=== PATIENT | female | born 1980 | race Caucasian/White ===

== ENCOUNTER 2019-01-17 09:34 | Inpatient (IN) | payer SELFPAY ==
[2019-01-17 09:35] VITALS: BP 191/100; PULSE 121; RESP 22; TEMP 36.4; O2SAT 100
--- NOTE | 2019-01-17 10:19 | CT_ITS ---
STUDY: CT ABDOMEN AND PELVIS WITHOUT CONTRAST REASON FOR EXAM: Female, 38 years old. Right flank pain. RADIATION DOSAGE (If Supplied By Facility): CTDIvol = ( 6.04 ) mGy, DLP = ( 292.95 ) mGycm TECHNIQUE: Transaxial images were obtained from the dome of the diaphragm to the symphysis pubis without oral contrast, and without intravenous contrast. Sagittal and coronal images were reconstructed. Individualized dose optimization techniques were used for this CT. COMPARISON: Minimal degree of increased markings at the left lung base suggestive of left basilar atelectasis. FINDINGS: The visualized lung bases are unremarkable. The visualized portions of the heart are within normal limits. Normal liver. Normal gallbladder and extrahepatic biliary system. Normal spleen. Normal pancreas. Normal bilateral adrenal glands. Right perinephric stranding. Congestion of the right kidney. Mild degree of right hydronephrosis. No ureteral calculus is seen at this time. Right-sided pyelonephritis should be ruled out. Punctate calcification in the upper pole of the left kidney. Normal visualized stomach. Normal small intestine. Normal colon. Inflammatory changes are seen in the right perinephric region and extending caudally. Retrocecal appendicitis should be ruled out. Normal abdominal aorta. Normal inferior vena cava. Normal retroperitoneum. Normal urinary bladder. Focal calcification is seen in the right side of the uterus suggestive of a fibroid change. Normal abdominal wall. Normal osseous structures. CT/Abdomen/Pelvis without Cont IMPRESSION: Findings suggestive of acute right-sided pyelonephritis with right perinephric stranding. Mild degree of right hydronephrosis and engorgement of the right kidney. Retrocecal appendicitis is another diagnostic consideration. Electronically Signed: Tristian Martin, at 12:38 EDT , Service support ,
--- NOTE | 2019-01-17 10:21 | ED.VISSUMM ---
- ER Visit Summary Date of Service: 01/17/19 Chief Complaint: Right flank pain History of Present Illness: The patient is a 38 F prior kidney stone. States the last several days she has had right flank pain briskly getting worse. Associated nausea. No vomiting or diarrhea. No fever. No dysuria or hematuria. No trauma. States her last menstrual period was 2 weeks ago. Says she just started bleeding again vaginally this morning. Physical Examination: Middle-aged female no acute distress vital signs are stable. Afebrile. Pulse ox on percent on room air no signs of hypoxia. She is tearful complaining of right flank pain. HEENT exam unremarkable. Moist week's membranes. Neck nontender. Lungs clear to auscultation. Heart regular rhythm no murmur. Abdomen is soft and nontender. Normal bowel sounds no peritoneal signs. She describes right flank pain but there is no reproducible tenderness. No guarding rebound or rigidity. Right upper right lower quadrants are unremarkable nontender. No hernias or masses. No obstruction. Patient is moving all 4 extremities. Neurovascularly intact. Test Results: White count 20,400 hemoglobin 13 hematocrit 42. No bands. Electrolytes potassium 3.3 normal gap and creatinine. UA positive for infection with positive nitrites greater than 100 red-white cells and 2+ bacteria sent for culture. Serum test negative. CT flank study without contrast is consistent with right pyelonephritis. The radiologist also read as a cannot rule out a retrocecal appendicitis but clinically the exam is consistent with pyelonephritis as on the labs. Emergency Department Course and Treatment: Treated with IV morphine and Zofran. IV fluids. CT flank study and labs are being obtained. Treatment Plan: Vision treated with 3 different doses of morphine will also be added with Toradol and she is had Zofran. She will be started on IV Rocephin for pyelonephritis. Disposition: Given her pain, white count and just overall presentation I will admit her. The hospitalist is on page. Hospitalist wanted a lactic acid performed prior to the patient being admitted. Impression: Acute right flank pain secondary to pyelonephritis Leukocytosis This note was generated with [employer] dictation software. It may contain incorrect words, spelling, and punctuation that were not noted in review of the chart prior to signing ED Disposition - Plan for ED Patient:
[2019-01-17] MEDS: Morphine 4 MG/ML Syringe 6 MG IV ×2 (10:41→14:39)
[2019-01-17] MEDS: Ondansetron 4 MG/2 ML Vial IV ×2 (10:41→18:42)
[2019-01-17] MEDS: 0.9% Normal Saline 1,000 ML 1000 ML IV (10:42)
[2019-01-17 10:58] LABS: Absolute Lymphocyte Count 1.38 X10^3/uL (0.83-4.51); Absolute Neutrophil Count 17.2 X10^3/uL (2.0-7.7); Basophil# 0.04 X10^3/uL; Basophil% 0.2 % (0-1); Eosinophil# 0.03 X10^3/uL; Eosinophils% 0.1 % (0-5); Hematocrit 42.1 % (37-47); Hemoglobin 13.7 g/dL (12.0-15.0); Lymphocyte # 1.38 X10^3/ul (4.0); Lymphocyte % 6.8 % (19-41); Mean Corp Hgb Conc 32.5 g/dL (32-36); Mean Corpuscular Volume 95.2 fL (81-99); Mean Platelet Vol. 8.2 fl (6.2-12.0); Monocyte# 1.38 X10^3/uL; Monocyte% 6.8 % (0-10); NRBC Flagged by Analyzer 0 % (0-5); Neutrophil % 84.5 % (47-70); Platelet Count 265 K/mm3 (150-450); RBC Distribution Width CV 11.9 % (11.6-14.6); RBC Distribution Width SD 41.6 fl (35.1-43.9); Red Blood Count 4.42 M/mm3 (4.2-5.4); White Blood Count 20.4 K/mm3 (4.4-11.0)
[2019-01-17 11:08] LABS: Internal QC Validated? YES +Cl - CLEAR BKGD; Pregnancy, Serum, hCG Quali. NEGATIVE Negative
[2019-01-17 11:18] LABS: AST(SGOT) 15 U/L (15-37); Alanine Aminotransfer ALT/SGPT 22 U/L (13-56); Albumin, Serum 3.2 g/dL (3.2-5.0); Alkaline Phosphatase 127 U/L (45-117); Anion Gap 5 (5-15); BUN 7 mg/dL (7-18); BUN/Creat Ratio 7.2 RATIO (10-20); Bilirubin, Direct 0.24 mg/dL (0.00-0.30); Calcium,Total 8.6 mg/dL (8.5-10.1); Chloride 100 mmol/L (98-107); Creatinine, Serum 0.97 mg/dL (0.55-1.02); EST Glomerular Filtration Rate 69 mL/min (>60); Est Glom Filt Rate - Afr Amer 83 mL/min (>60); Estimated Creatinine Clearance 64.43 ml/min; Globulin 4.3 g/dL (2.2-4.2); Glucose 180 mg/dL (74-106); Potassium 3.3 mmol/L (3.5-5.1); Protein, Total 7.5 g/dL (6.4-8.2); Sodium Level 132 mmol/L (136-145)
[2019-01-17 12:07] LABS: Mucous, Urine 0 SEEN /hpf (<or=2+)
[2019-01-17 12:10] LABS: Color, Urine Yellow (Yellow); Glucose, Dipstick Normal (Normal); Ketone-Dipstick 50 mg/dl (Negative); Leukocyte Esterase-Dipstick 500 /ul (Negative); Nitrite-Dipstick Positive (Negative); Occult Blood-Urine 150 /ul (Negative); Protein-Dipstick 100 mg/dl (Negative); Specific Gravity, Urine 1.015 (1.002-1.030); Urine Bilirubin Dipstick Negative (Negative); Urine Clarity Cloudy (Clear); Urine Urobilinogen Normal (Normal)
[2019-01-17 12:21] LABS: White Blood Cells >100 SEEN /hpf (0-5)
[2019-01-17 12:23] VITALS: RESP 16
[2019-01-17 12:23] LABS: Bacteria 2+ /hpf (None Seen); Red Blood Cells-Urine 5-10 SEEN /hpf (0-5); Squamous Epithelial Cells - UA 5-10 SEEN /hpf (5-10)
[2019-01-17 14:40] VITALS: RESP 18
[2019-01-17] MEDS: morphine 8 MG/ML Syringe 6 MG IV (15:28)
[2019-01-17] MEDS: Ketorolac 30 MG/ML Syringe IV (15:28)
[2019-01-17 15:29] VITALS: BMI 20.1
--- NOTE | 2019-01-17 15:48 | PCM.HP.STD ---
Problem List (1) Pyelonephritis Status: Acute (2) Acute sepsis Status: Acute (3) Alcoholism Status: Chronic (4) Nicotine abuse Status: Chronic History of Present Illness Date of Admission: 01/17/19 Chief Complaint: Right flank pain The patient is a 38 year old F of alcoholism, nicotine abuse, who presented to the emergency room with complaints of right-sided flank pain. She has had severe aching pain in the right flank for at least the past week. Yesterday she started also having fevers and chills at home. She denies dysuria. No hematuria. She does have increased frequency especially at night. She came to the emergency room and was found to have urinary tract infection and CT of the abdomen demonstrated pyelonephritis, no stones. She was given Rocephin and morphine however she continues to have severe uncontrolled pain. No nausea, vomiting, or diarrhea - she states she is constipated and has been taking laxatives for 3 days. She does not take medication. She smokes a pack per day. She states that she is an alcoholic however she does not currently drink everyday, and that she will not go through withdrawal while shes here. 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 Denies: Weakness, Weight Change, Fatigue HEENT: Denies: Head Aches, Sinus Congestion, Sinus Drainage Cardiovascular: Denies: Chest Pain, Edema, Palpitations Respiratory: Denies: Cough, Shortness of Breath, Shortness of breath at rest, Sputum production, Wheezing Gastrointestinal: Reports: Abdominal Pain, Constipation, - - flank pain. Denies: Nausea, Vomiting Genitourinary: Reports: Frequency. Denies: Dysuria, Hematuria, Incontinence, Urgency Musculoskeletal: Denies: Joint Pain, Joint Tenderness Skin: Denies: Rash, Wounds Neurological: Denies: Numbness, Tingling, Focal weakness Psychiatric: Denies: Anxiety, Depression, Homicidal Ideations, Suicidal Ideations Hematologic/ Lymphatic: Denies: Easy Bruising, Easy Bleeding VTE Information - Inpt Only VTE Present on Admission: No VTE Mechan Device Prophylaxis: None VTE Pharm Prophylaxis ordered?: No Reason prophylaxis not ordered:: Procedure Not Indicated Patient Problems: Active and Suspected Problems Pyelonephritis (Acute) Acute sepsis (Acute) - Physical Exam General: Alert, Oriented x3, Cooperative, - - restlessin bed obvious discomfort HEENT: Atraumatic, PERRLA, EOMI, Normocephalic Neck: Supple, No JVD, Negative Carotid Bruits Lungs: Clear to auscultation, Normal air movement Cardiovascular: Regular rate, No murmurs Abdomen: Bowel Sounds Present, Soft, Non Tender, Tender - right abdominal tenderness, cva tenderness. Extremities: No edema, Capillary Refill Less than 3 Seconds Skin: No rashes, No breakdown Musculoskeletal: No Tenderness to Palpation of Joints or Extremities Neurological: Cranial nerves II-XII grossly intact Psych/Mental Status: Normal Affect, Appropriate, Alert and oriented to time, place, person, mood and affect Vital Signs Temp Pulse Resp BP Pulse Ox 97.5 F L 121 H 18 191/100 H 100 01/17/19 09:35 01/17/19 09:35 01/17/19 14:40 01/17/19 09:35 01/17/19 09:35 Oxygen Delivery Method Room Air Weight: 113 lb 5.082 oz Body Mass Index (BMI) 20.0 Intake and Output for Last 24 Hours 01/15/19 01/16/19 01/17/19 23:59 23:59 23:59 Intake Total 1000 / 1000 Balance 1000 / 1000 Laboratory Tests Past 24 Hrs 01/17/19 01/17/19 01/17/19 09:54 09:54 10:45 WBC 20.4 H RBC 4.42 Hgb 13.7 Hct 42.1 MCV 95.2 MCH 31.0 MCHC 32.5 RDW Std Deviation 41.6 RDW Coeff of Minesh 11.9 Plt Count 265 MPV 8.2 Immature Gran % (Auto) 1.600 H Neut % (Auto) 84.5 H Lymph % (Auto) 6.8 L [place] % (Auto) 6.8 Eos % (Auto) 0.1 Baso % (Auto) 0.2 Absolute Neuts (auto) 17.2 H Absolute Lymphs (auto) 1.38 Nucleated RBC % 0 Sodium Cancelled Potassium Cancelled Chloride Cancelled Carbon Dioxide Cancelled Anion Gap Cancelled BUN Cancelled Creatinine Cancelled Estim Creat Clear Calc Cancelled Est GFR (MDRD) Af Amer Cancelled Est GFR (MDRD) Non-Af Cancelled BUN/Creatinine Ratio Cancelled Glucose Cancelled Calcium Cancelled Total Bilirubin Cancelled Direct Bilirubin Cancelled AST Cancelled ALT Cancelled Alkaline Phosphatase Cancelled Total Protein Cancelled Albumin Cancelled Globulin Cancelled Serum , Qual Cancelled Urine Color Urine Clarity Urine pH Ur Specific [place] Urine Protein Urine Glucose (UA) Urine Ketones Urine Occult Blood Urine Nitrite Urine Bilirubin Urine Urobilinogen Ur Leukocyte Esterase Urine RBC Urine WBC Ur Squamous Epith Cells Urine Bacteria Urine Mucus 01/17/19 01/17/19 01/17/19 10:45 10:45 11:56 WBC RBC Hgb Hct MCV MCH MCHC RDW Std Deviation RDW Coeff of Minesh Plt Count MPV Immature Gran % (Auto) Neut % (Auto) Lymph % (Auto) [place] % (Auto) Eos % (Auto) Baso % (Auto) Absolute Neuts (auto) Absolute Lymphs (auto) Nucleated RBC % Sodium 132 L Potassium 3.3 L Chloride 100 Carbon Dioxide 27.0 Anion Gap 5 BUN 7 Creatinine 0.97 Estim Creat Clear Calc 64.43 Est GFR (MDRD) Af Amer 83 Est GFR (MDRD) Non-Af 69 BUN/Creatinine Ratio 7.2 L Glucose 180 H Calcium 8.6 Total Bilirubin 0.80 Direct Bilirubin 0.24 AST 15 ALT 22 Alkaline Phosphatase 127 H Total Protein 7.5 Albumin 3.2 Globulin 4.3 H Serum , Qual NEGATIVE Urine Color Yellow Urine Clarity Cloudy Urine pH 6.0 Ur Specific [place] 1.015 Urine Protein 100 H Urine Glucose (UA) Normal Urine Ketones 50 H Urine Occult Blood 150 H Urine Nitrite Positive H Urine Bilirubin Negative Urine Urobilinogen Normal Ur Leukocyte Esterase 500 H Urine RBC 5-10 SEEN Urine WBC >100 SEEN Ur Squamous Epith Cells 5-10 SEEN Urine Bacteria 2+ Urine Mucus 0 SEEN Assessment/Plan All Active Problems Pyelonephritis (Acute) Acute sepsis (Acute) 1. Acute sepsis 2/2 acute right sided pyelonephritis - WBC 20k, tachycardic, tachypneic. + UA, CT c/w Pyelo right sided. LA pending. Blood/urine cx drawn. Continue rocephin 2g/24h. Uncontrolled right flank pain. Continue PRN oxycodone/morphine, zofran, aggressive IV fluids. No dysuria. Replace K. HCG neg. 2. Alcoholism - states she does not drink daily. Needs complete cessation. CIWA protocol PRN ativan. She doubts that she will have issues with withdrawal whil ehre. 3. Nicotine abuse - patch. smokes 1 ppd. DVT ppx: early ambulation This patient was seen by Ten Godoy PA-C under the supervision of Doctor Brunner
[2019-01-17] MEDS: Ceftriaxone 1 GM/50 ML BAG IV (15:50)
[2019-01-17 15:59] VITALS: BMI 20.2
[2019-01-17 16:00] VITALS: BP 96/58; PULSE 87; RESP 18; TEMP 37.2; O2SAT 98
[2019-01-17] MEDS: 0.9% Normal Saline 1,000 ML 150 ML IV ×2 (16:28→23:06)
[2019-01-17 16:41] LABS: Lactic Acid 0.7 mmol/L (0.4-2.0)
[2019-01-17] MEDS: Morphine 4 MG/ML Syringe IV (18:42)
[2019-01-17] MEDS: 0.9% NaCl Peripheral Flush Adult/Peds IV (18:42)
[2019-01-17 21:34] VITALS: BP 98/59; PULSE 101; RESP 16; TEMP 37.1; O2SAT 100
[2019-01-18] VITALS (7 sets, daily range): BP systolic 87–110; BP diastolic 54–73; PULSE 89–108; RESP 14–18; TEMP 36.7–37.8; O2SAT 95–100
[2019-01-18] MEDS: Acetaminophen 325 MG Tablet 650 MG PO (00:57)
[2019-01-18] MEDS: 0.9% NaCl Peripheral Flush Adult/Peds IV ×4 (00:58→12:19)
[2019-01-18] MEDS: Ondansetron 4 MG/2 ML Vial IV ×2 (00:58→06:53)
[2019-01-18] MEDS: oxyCODONE 5 MG Tablet 10 MG PO ×3 (00:58→18:24)
[2019-01-18] MEDS: Morphine 4 MG/ML Syringe IV (03:16)
[2019-01-18 05:55] LABS: Absolute Lymphocyte Count 1.52 X10^3/uL (0.83-4.51); Basophil# 0.03 X10^3/uL; Basophil% 0.2 % (0-1); Eosinophil# 0.05 X10^3/uL; Eosinophils% 0.3 % (0-5); Hematocrit 34.6 % (37-47); Hemoglobin 11.1 g/dL (12.0-15.0); Lymphocyte # 1.52 X10^3/ul (4.0); Lymphocyte % 10.1 % (19-41); Mean Corp Hgb Conc 32.1 g/dL (32-36); Mean Corpuscular Hgb 30.7 pg (27.0-32.0); Mean Corpuscular Volume 95.6 fL (81-99); Mean Platelet Vol. 8.5 fl (6.2-12.0); Monocyte# 1.25 X10^3/uL; Monocyte% 8.3 % (0-10); NRBC Flagged by Analyzer 0 % (0-5); Neutrophil # 12.02 X10^3/uL (2.7-7.7); POSITIVE MORPHOLOGY YES; Platelet Count 230 K/mm3 (150-450); RBC Distribution Width CV 11.9 % (11.6-14.6); RBC Distribution Width SD 41.5 fl (35.1-43.9); Red Blood Count 3.62 M/mm3 (4.2-5.4)
[2019-01-18 05:57] LABS: Differential Indicated SCAN CRITERIA MET
[2019-01-18 06:23] LABS: Anion Gap 8 (5-15); BUN 7 mg/dL (7-18); BUN/Creat Ratio 9.1 RATIO (10-20); Calcium,Total 7.5 mg/dL (8.5-10.1); Chloride 105 mmol/L (98-107); Creatinine, Serum 0.77 mg/dL (0.55-1.02); EST Glomerular Filtration Rate 89 mL/min (>60); Est Glom Filt Rate - Afr Amer 108 mL/min (>60); Estimated Creatinine Clearance 81.66 ml/min; Glucose 151 mg/dL (74-106); Potassium 2.9 mmol/L (3.5-5.1); Sodium Level 138 mmol/L (136-145)
[2019-01-18] MEDS: 0.9% Normal Saline 1,000 ML 150 ML IV ×3 (06:25→18:24)
[2019-01-18 06:29] LABS: Differential Comment SCANNED
[2019-01-18] MEDS: 0.9% Normal Saline 1,000 ML 999 ML IV (07:12)
--- NOTE | 2019-01-18 07:23 | PN_ITS ---
Patient Problems: Active and Suspected Problems Pyelonephritis (Acute) Acute sepsis (Acute) Vitals/I&O's: Vital Signs Temp Pulse Resp BP Pulse Ox 98.7 F 99 18 87/55 L 98 01/18/19 06:51 01/18/19 06:51 01/18/19 06:51 01/18/19 06:51 01/18/19 06:51 Oxygen Delivery Method Room Air Weight: 51.71 kg Body Mass Index (BMI) 20.2 Intake and Output for Last 24 Hours 01/16/19 01/17/19 01/18/19 23:59 23:59 23:59 Intake Total 2145 / 2591 1916 / 1916 Output Total 600 / 600 Balance 2145 / 2391 1316 / 1316 Laboratory Results 01/17/19 09:54: Sodium Cancelled, Potassium Cancelled, Chloride Cancelled, Carbon Dioxide Cancelled, Anion Gap Cancelled, BUN Cancelled, Creatinine Cancelled, Estim Creat Clear Calc Cancelled, Est GFR (MDRD) Af Amer Cancelled, Est GFR (MDRD) Non-Af Cancelled, BUN/Creatinine Ratio Cancelled, Glucose Cancelled, Calcium Cancelled, Total Bilirubin Cancelled, Direct Bilirubin Cancelled, AST Cancelled, ALT Cancelled, Alkaline Phosphatase Cancelled, Total Protein Cancelled, Albumin Cancelled, Globulin Cancelled 01/17/19 09:54: Serum , Qual Cancelled 01/17/19 10:45: WBC 20.4 H, RBC 4.42, Hgb 13.7, Hct 42.1, MCV 95.2, MCH 31.0, MCHC 32.5, RDW Std Deviation 41.6, RDW Coeff of Minesh 11.9, Plt Count 265, MPV 8.2, Immature Gran % (Auto) 1.600 H, Neut % (Auto) 84.5 H, Lymph % (Auto) 6.8 L, [place] % (Auto) 6.8, Eos % (Auto) 0.1, Baso % (Auto) 0.2, Absolute Neuts (auto) 17.2 H, Absolute Lymphs (auto) 1.38, Nucleated RBC % 0 01/17/19 10:45: Sodium 132 L, Potassium 3.3 L, Chloride 100, Carbon Dioxide 27.0, Anion Gap 5, BUN 7, Creatinine 0.97, Estim Creat Clear Calc 64.43, Est GFR (MDRD) Af Amer 83, Est GFR (MDRD) Non-Af 69, BUN/Creatinine Ratio 7.2 L, Glucose 180 H, Calcium 8.6, Total Bilirubin 0.80, Direct Bilirubin 0.24, AST 15, ALT 22, Alkaline Phosphatase 127 H, Total Protein 7.5, Albumin 3.2, Globulin 4.3 H 01/17/19 10:45: Serum , Qual NEGATIVE 01/17/19 11:56: Urine Color Yellow, Urine Clarity Cloudy, Urine pH 6.0, Ur S pecific [place] 1.015, Urine Protein 100 H, Urine Glucose (UA) Normal, Urine Ketones 50 H, Urine Occult Blood 150 H, Urine Nitrite Positive H, Urine Bilirubin Negative, Urine Urobilinogen Normal, Ur Leukocyte Esterase 500 H, Urine RBC 5-10 SEEN, Urine WBC >100 SEEN, Ur Squamous Epith Cells 5-10 SEEN, Urine Bacteria 2+, Urine Mucus 0 SEEN 01/17/19 16:08: Lactic Acid 0.7 01/18/19 05:30: WBC 15.0 H, RBC 3.62 L, Hgb 11.1 L, Hct 34.6 L, MCV 95.6, MCH 30.7, MCHC 32.1, RDW Std Deviation 41.5, RDW Coeff of Minesh 11.9, Plt Count 230, MPV 8.5, Immature Gran % (Auto) 1.100 H, Neut % (Auto) 80.0 H, Lymph % (Auto) 10.1 L, [place] % (Auto) 8.3, Eos % (Auto) 0.3, Baso % (Auto) 0.2, Absolute Neuts (auto) 12.0 H, Absolute Lymphs (auto) 1.52, Nucleated RBC % 0, Differential Comment SCANNED 01/18/19 05:30: Sodium 138, Potassium 2.9 L, Chloride 105, Carbon Dioxide 25.0, Anion Gap 8, BUN 7, Creatinine 0.77, Estim Creat Clear Calc 81.66, Est GFR (MDRD) Af Amer 108, Est GFR (MDRD) Non-Af 89, BUN/Creatinine Ratio 9.1 L, Glucose 151 H, Calcium 7.5 L Current Medications Acetaminophen (Tylenol) 650 mg PO Q6H PRN PRN PRN Reason: Mild Pain (1-3)/Temp > 100.7 F Last Admin: 01/18/19 00:57 Dose: 650 mg Documented by: Sodium Chloride () 1,000 mls @ 150 mls/hr IV .Q6H40M [facility] Last Admin: 01/18/19 06:25 Dose: 150 mls/hr Documented by: Ceftriaxone Sodium 2 gm/ (Sodium Chloride) 50 mls @ 100 mls/hr IV Q24@2200 PJ Last Infusion: 01/18/19 03:46 Dose: Infused Documented by: Sodium Chloride () 1,000 mls @ 999 mls/hr IV .Q1H1M ONE Stop: 01/18/19 08:02 Last Admin: 01/18/19 07:12 Dose: 999 mls/hr Documented by: Potassium Chloride () 10 meq in 100 mls @ 100 mls/hr IV BOLUS Q1H [facility] Stop: 01/18/19 11:29 Morphine Sulfate () 4 - 6 mg IV Q3H PRN PRN PRN Reason: Severe pain (7-10/10) Last Admin: 01/18/19 03:16 Dose: 4 mg Documented by: Ondansetron HCl (Zofran) 4 mg IV Q6H PRN PRN PRN Reason: NAUSEA/VOMITING Last Admin: 01/18/19 06:53 Dose: 4 mg Documented by: Oxycodone HCl (Oxyir) 10 mg PO Q4H PRN PRN PRN Reason: Moderate Pain (4-6/10) Last Admin: 01/18/19 00:58 Dose: 10 mg Documented by: Potassium Chloride (K-Dur) 40 meq PO BIDCM [facility] Sodium Chloride () 5 - 15 ml IV UD PRN PRN Reason: SALINE FLUSH Last Admin: 01/18/19 06:53 Dose: 10 ml Documented by: Medical Necessity - Tobacco Use Smoking Status: Current every day smoker Tobacco Use: Cigarettes Assessment/Plan All Active Problems Pyelonephritis (Acute) Acute sepsis (Acute)
[2019-01-18] MEDS: Potassium Chloride 10mEq/100mL 10 MEQ/100 ML IV.SOLN. 100 MEQ IV BOLUS ×4 (08:41→13:35)
[2019-01-18] MEDS: fentaNYL 100 MCG/2 ML Ampul 25 MCG IV (09:11)
--- NOTE | 2019-01-18 09:11 | NURSING ---
PT REQUESTED TO WAIT ON KDUR TIL NAUSEA IMPROVED.
--- NOTE | 2019-01-18 12:10 | CASEMGMT ---
Social Work Met with patient as she is self-pay. Patient stated she has no income and lives with her fiance that receives $1,000/mo through his late mother's trust. Discussed applying for Medicaid. Pt agreeable. Assist pt in completing Medicaid application. Faxed lisette to [facility]. Will await outcome. Inquired about alcohol and if she would like resources for alcohol detox or counseling - pt stated no, I've been good with my drinking. No other needs. Mag Winn, JUDI [facility]
[2019-01-18 12:13] LABS: Magnesium 1.8 mg/dL (1.6-2.6); Phosphorus 1.4 mg/dL (2.5-4.9)
[2019-01-18] MEDS: hydrOXYzine PAM 25 MG Capsule PO (12:18)
[2019-01-18] MEDS: Ketorolac 15 MG/ML Vial IV ×2 (12:18→21:14)
--- NOTE | 2019-01-18 12:18 | NURSING ---
pt able to tolerate lunch without N/V meds given.
--- NOTE | 2019-01-18 12:32 | CASEMGMT ---
Addendum entered by Cristy Alvarez 01/18/19 12:44: Pt provided with Prescription Drug Discount Card at this time. Original Note: RN CM Assessment Introduced role of RN CM to patient.? Patient is alert, oriented and able?to participate in RN CM Assessment. ?Care providers, pharmacy, and demographics verified. Presentation: Presented to ER d/t last several days with Rt Flank pain that is getting worse. Admit Dx: Pyelonephritis Re-Admit: No Barriers/Issues: Patient currently does not have insurance/pcp/medication coverage. Refused offered PCP list and states that she knows doctors to get established with and f/u. 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 PCP: None Specialists: None Preferred Pharmacy: [facility] Insurance: None Rx Benefit: None? ?LNOK: Mother Buhmi Walker LW/HPOA: None and declines offered information or services this admission. Aware can come as an Outpatient to complete. Living Arrangements:?Lives with her Fiance in a SS home, 5 steps to enter ADL?s: Independent with ambulation and ADLs Transportation: Friends and same upon DC, denies any transportation issues. DME: None HHC: None SNF: None Goal: Home denies any needs. Aware CM can work to assist if Dc'd with medications with medication coupon cards. Denies any issues/concerns/ or questions at this time. Aware CM remains available for any emerging needs. DC PLAN: Home with CM to follow for Coupon Card for medications. AV Felipe
--- NOTE | 2019-01-18 14:04 | PCM.PROGNOTE ---
<Ten Godoy - Last Filed: 01/18/19 14:04> Patient Problems: Active and Suspected Problems Pyelonephritis (Acute) Acute sepsis (Acute) Subjective: ongoing right sided flank pain, this is now more dull and less severe than last night. she continues to have nausea/vomiting. She continues to require a large amount of pain meds. No fever/chills. no LH/dizziness. No palp/cp. She feels very anxious and is requesting something for anxiety. - Physical Exam General: Alert, Oriented x3, Cooperative HEENT: Atraumatic, PERRLA, EOMI, Normocephalic Neck: Supple, No JVD, Negative Carotid Bruits Lungs: Clear to auscultation, Normal air movement Cardiovascular: Regular rate, No murmurs Abdomen: Bowel Sounds Present, Soft, - - CVA tenderness, RLQ tenderness. Extremities: No edema, Capillary Refill Less than 3 Seconds Skin: No rashes, No breakdown Musculoskeletal: No Tenderness to Palpation of Joints or Extremities Neurological: Cranial nerves II-XII grossly intact Psych/Mental Status: Appropriate, Anxious, Alert and oriented to time, place, person, mood and affect Vital Signs Temp Pulse Resp BP Pulse Ox 99.2 F H 99 18 99/65 100 01/18/19 12:18 01/18/19 12:18 01/18/19 12:18 01/18/19 12:18 01/18/19 12:18 Oxygen Delivery Method Room Air Weight: 114 lb 0.016 oz Body Mass Index (BMI) 20.2 Intake and Output for Last 24 Hours 01/16/19 01/17/19 01/18/19 23:59 23:59 23:59 Intake Total 2145 / 2591 4683.5 / 4683.5 Output Total 950 / 950 Balance 2145 / 2391 3733.5 / 3733.5 Microbiology Past 72 Hours 01/17/19 11:56 Urine Culture - Preliminary Urine, Clean Catch Gram negative joce Laboratory Tests Past 24 Hrs 01/17/19 01/18/19 01/18/19 16:08 05:30 05:30 WBC 15.0 H RBC 3.62 L Hgb 11.1 L Hct 34.6 L MCV 95.6 MCH 30.7 MCHC 32.1 RDW Std Deviation 41.5 RDW Coeff of Minesh 11.9 Plt Count 230 MPV 8.5 Immature Gran % (Auto) 1.100 H Neut % (Auto) 80.0 H Lymph % (Auto) 10.1 L Turner % (Auto) 8.3 Eos % (Auto) 0.3 Baso % (Auto) 0.2 Absolute Neuts (auto) 12.0 H Absolute Lymphs (auto) 1.52 Nucleated RBC % 0 Differential Comment SCANNED Sodium 138 Potassium 2.9 L Chloride 105 Carbon Dioxide 25.0 Anion Gap 8 BUN 7 Creatinine 0.77 Estim Creat Clear Calc 81.66 Est GFR (MDRD) Af Amer 108 Est GFR (MDRD) Non-Af 89 BUN/Creatinine Ratio 9.1 L Glucose 151 H Lactic Acid 0.7 Calcium 7.5 L Phosphorus Magnesium 01/18/19 05:30 WBC RBC Hgb Hct MCV MCH MCHC RDW Std Deviation RDW Coeff of Minesh Plt Count MPV Immature Gran % (Auto) Neut % (Auto) Lymph % (Auto) Turner % (Auto) Eos % (Auto) Baso % (Auto) Absolute Neuts (auto) Absolute Lymphs (auto) Nucleated RBC % Differential Comment Sodium Potassium Chloride Carbon Dioxide Anion Gap BUN Creatinine Estim Creat Clear Calc Est GFR (MDRD) Af Amer Est GFR (MDRD) Non-Af BUN/Creatinine Ratio Glucose Lactic Acid Calcium Phosphorus 1.4 L Magnesium 1.8 Medical Necessity - Tobacco Use Smoking Status: Current every day smoker Tobacco Use: Cigarettes Assessment/Plan All Active Problems Pyelonephritis (Acute) Acute sepsis (Acute) 1. Acute sepsis 2/2 acute right sided pyelonephritis - WBC improved, afebrile. Still significant pain and borderline BP. Continue rocephin, follow final cultures. Avoid excessive IV morphine. 2. Alcoholism - states she does not drink daily. Needs complete cessation. CIWA protocol PRN ativan. She doubts that she will have issues with withdrawal while here. 3. Nicotine abuse - patch. smokes 1 ppd. 4. Anxiety - prn vistaril. avoid ativan with hx of alcohol abuse and ongoing borderling low blood pressure. DVT ppx: early ambulation This patient was seen by Ten Godoy PA-C under the supervision of Doctor Nakia <Jennyfer Yee - Last Filed: 01/18/19 16:43> - Physical Exam Vital Signs Temp Pulse Resp BP Pulse Ox 99.2 F H 99 18 99/65 100 01/18/19 12:18 01/18/19 12:18 01/18/19 12:18 01/18/19 12:18 01/18/19 12:18 Oxygen Delivery Method Room Air Weight: 51.71 kg Body Mass Index (BMI) 20.2 Intake and Output for Last 24 Hours 01/16/19 01/17/19 01/18/19 23:59 23:59 23:59 Intake Total 2145 / 2591 4783.5 / 4783.5 Output Total 950 / 950 Balance 2145 / 2391 3833.5 / 3833.5 Microbiology Past 72 Hours 01/17/19 11:56 Urine Culture - Preliminary Urine, Clean Catch Gram negative joce Laboratory Tests Past 24 Hrs 01/17/19 01/18/19 01/18/19 16:08 05:30 05:30 WBC 15.0 H RBC 3.62 L Hgb 11.1 L Hct 34.6 L MCV 95.6 MCH 30.7 MCHC 32.1 RDW Std Deviation 41.5 RDW Coeff of Minesh 11.9 Plt Count 230 MPV 8.5 Immature Gran % (Auto) 1.100 H Neut % (Auto) 80.0 H Lymph % (Auto) 10.1 L Turner % (Auto) 8.3 Eos % (Auto) 0.3 Baso % (Auto) 0.2 Absolute Neuts (auto) 12.0 H Absolute Lymphs (auto) 1.52 Nucleated RBC % 0 Differential Comment SCANNED Sodium 138 Potassium 2.9 L Chloride 105 Carbon Dioxide 25.0 Anion Gap 8 BUN 7 Creatinine 0.77 Estim Creat Clear Calc 81.66 Est GFR (MDRD) Af Amer 108 Est GFR (MDRD) Non-Af 89 BUN/Creatinine Ratio 9.1 L Glucose 151 H Lactic Acid 0.7 Calcium 7.5 L Phosphorus Magnesium 01/18/19 05:30 WBC RBC Hgb Hct MCV MCH MCHC RDW Std Deviation RDW Coeff of Minesh Plt Count MPV Immature Gran % (Auto) Neut % (Auto) Lymph % (Auto) Turner % (Auto) Eos % (Auto) Baso % (Auto) Absolute Neuts (auto) Absolute Lymphs (auto) Nucleated RBC % Differential Comment Sodium Potassium Chloride Carbon Dioxide Anion Gap BUN Creatinine Estim Creat Clear Calc Est GFR (MDRD) Af Amer Est GFR (MDRD) Non-Af BUN/Creatinine Ratio Glucose Lactic Acid Calcium Phosphorus 1.4 L Magnesium 1.8 Assessment/Plan This patient was seen in conjunction with MARSHLAL Maher. I have independently interviewed and examined the patient and reviewed pertinent historical, laboratory, and other data. Please refer to MARSHALL Maher note for his patient's presentation, findings, and recommendations. I have reviewed and his note and concur with his documentation Patient was seen and examined. She had an episode of emesis and hypotension. She received fluid boluses. She complains of right flank pain. She denies any fever or dizziness or chest pain. Physical Exam: Gen: Looks in some discomfort, not pale, not jaundiced, mildly dehydrated CVS:HS I +II, regular, no murmurs RESP: CTA GI: BS present and normal, soft, tenderness in right flank region, no palpable organs EXT:No edema ASSESSMENT: 1. Sepsis secondary to acute pyelonephritis 2. Hypokalemia 3. Hypomagnesemia 4. Hypophosphatemia 5. Chronic alcoholism 6. Nicotine dependence 7. Anxiety disorder Plan: Replace electrolytes, continue IV ceftriaxone Follow-up with urine cultures Monitor CIWA scores Code Visit Inpatient E&M: 87734 Subs Hosp L2
--- NOTE | 2019-01-18 15:23 | CHAPLAIN ---
Type of Pastoral Visit _x__ Initial Visit ___ Follow-up Visit ___ On-call Visit ___ General Patient Visit ___ Spiritual Assessment ___ Family Conference ___ Bereavement ___ Rapid Response ___ Code Blue ___ Other (describe below) Pastoral Care Referral From _x__ Patient ___ Family ___ Nurse ___ Physician ___ Catcher Filter Tip ___ Logistics Solution Manager ___ Other (describe below) Sacrament/Intervention _x__ Active listening ___ Anointing ___ Jainism ___ Bereavement ___ Communion ___ Chante exploration ___ ___ Life review _x__ Prayer ___ Reconciliation ___ Sacrament of Sick _x__ Supportive presence ___ Wedding ___ Other (describe below) Pastoral Comments
[2019-01-18] MEDS: Magnesium Oxide 400 MG Tablet 800 MG PO (17:25)
[2019-01-18] MEDS: Na Biphos/Potassium Phosphate PACKET 1 PACKET PO ×2 (17:26→21:04)
[2019-01-19] MEDS: 0.9% Normal Saline 1,000 ML 150 ML IV ×2 (01:44→08:10)
[2019-01-19] MEDS: oxyCODONE 5 MG Tablet 10 MG PO (01:48)
[2019-01-19 03:29] VITALS: BP 102/64; PULSE 97; RESP 18; TEMP 37.9; O2SAT 96
[2019-01-19] MEDS: Acetaminophen 325 MG Tablet 650 MG PO (03:41)
[2019-01-19 06:44] LABS: Absolute Lymphocyte Count 1.22 X10^3/uL (0.83-4.51); Absolute Neutrophil Count 5.9 X10^3/uL (2.0-7.7); Basophil# 0.01 X10^3/uL; Basophil% 0.1 % (0-1); Eosinophil# 0.06 X10^3/uL; Eosinophils% 0.8 % (0-5); Hemoglobin 10.2 g/dL (12.0-15.0); Lymphocyte # 1.22 X10^3/ul (4.0); Lymphocyte % 15.5 % (19-41); Mean Corp Hgb Conc 31.9 g/dL (32-36); Mean Corpuscular Hgb 30.5 pg (27.0-32.0); Mean Corpuscular Volume 95.8 fL (81-99); Mean Platelet Vol. 8.6 fl (6.2-12.0); Monocyte# 0.65 X10^3/uL; Monocyte% 8.2 % (0-10); NRBC Flagged by Analyzer 0 % (0-5); Neutrophil # 5.87 X10^3/uL (2.7-7.7); Neutrophil % 74.5 % (47-70); Platelet Count 194 K/mm3 (150-450); RBC Distribution Width CV 12.2 % (11.6-14.6); RBC Distribution Width SD 42.9 fl (35.1-43.9); Red Blood Count 3.34 M/mm3 (4.2-5.4); White Blood Count 7.9 K/mm3 (4.4-11.0)
[2019-01-19] MEDS: Ketorolac 15 MG/ML Vial IV (06:50)
[2019-01-19 06:53] VITALS: TEMP 36.6
[2019-01-19 07:08] LABS: Anion Gap 2 (5-15); BUN 4 mg/dL (7-18); BUN/Creat Ratio 5.1 RATIO (10-20); Calcium,Total 7.6 mg/dL (8.5-10.1); Chloride 109 mmol/L (98-107); Creatinine, Serum 0.78 mg/dL (0.55-1.02); EST Glomerular Filtration Rate 89 mL/min (>60); Est Glom Filt Rate - Afr Amer 107 mL/min (>60); Estimated Creatinine Clearance 80.61 ml/min; Glucose 158 mg/dL (74-106); Potassium 3.6 mmol/L (3.5-5.1); Sodium Level 137 mmol/L (136-145)
[2019-01-19 08:12] VITALS: BP 98/68; PULSE 90; RESP 18; TEMP 36.7; O2SAT 100
[2019-01-19 08:18] LABS: Magnesium 1.9 mg/dL (1.6-2.6); Phosphorus 1.4 mg/dL (2.5-4.9)
[2019-01-19] MEDS: Magnesium Oxide 400 MG Tablet 800 MG PO (09:10)
--- NOTE | 2019-01-19 09:12 | PCM.DC ---
- Discharge Diagnoses Current Active Problems: Current Active and Chronic Problems Pyelonephritis (Acute) Acute sepsis (Acute) Alcoholism (Chronic) Nicotine abuse (Chronic) Reason(s) for Visit for Discharge Instructions: Right flank pain, fever You will use the following diet at home:: Regular Your food should be the consistency of: Regular Your liquids should be the consistency of: Regular/Thin Discharge Activity: Return to Normal Activity Additional Instructions: You are strongly advised to quit drinking alcohol and smoking. You are encouraged to use nicotine patches for smoking cessation. You can take ibuprofen or tylenol for pain. You have been prescribed antibiotics, magnesium and phosphorus. Complete all your meds. Keep yourself well hydrated. Allergies/Adverse Reactions: Allergies No Known Allergies Allergy (Verified 01/17/19 09:35) Medications to take at Discharge Acetaminophen [Tylenol Tablet] 650 mg PO Q6H PRN PRN tab 01/19/19 Levofloxacin [Levaquin] 500 mg PO DAILY #5 tab 01/19/19 Na Biphos/Potassium Phosphate [Neutra-Phos Packet] 1 packet PO 4X/DAY #4 packet 01/19/19 Nicotine [Nicoderm Cq] 21 mg TRANSDERM. DAILY patch 01/19/19 hydrOXYzine pamoate capsule [Vistaril pamoate capsule] 25 mg PO TID PRN PRN #10 cap 01/19/19 The following prescriptions were given: Levofloxacin [Levaquin] 500 mg PO DAILY #5 tab Transmission Status: Pending to [facility] [place] [address] Na Biphos/Potassium Phosphate [Neutra-Phos Packet] 1 packet PO 4X/DAY #4 packet Transmission Status: Pending to [facility] hydrOXYzine pamoate capsule [Vistaril pamoate capsule] 25 mg PO TID PRN PRN #10 cap PRN Reason: ANXIETY Transmission Status: Pending to [facility] Primary Care Physician: Jayden Oneal MD [Primary Care Provider] - Please follow up with your Primary Care Physician in: within 1-2 weeks Test Results: Test results from this visit will be discussed in further detail at your follow-up appointment, if applicable. Proposed Discharge Date: 01/19/19
[2019-01-19] MEDS: Na Biphos/Potassium Phosphate PACKET 1 PACKET PO (10:12)
--- NOTE | 2019-01-19 12:28 | PCM.DC.SUM ---
<Ten Godoy - Last Filed: 01/19/19 12:28> Discharge Date and Diagnosis Date of Admission: 01/17/19 Date of Discharge: 01/19/19 - Primary Discharge Diagnosis Acute sepsis 2/2 acute right sided pyelonephritis 2/2 E coli Alcoholism Nicotine abuse Anxiety - Secondary Discharge Diagnosis Chronic Problems Alcoholism (Chronic) Nicotine abuse (Chronic) Hospital Course and Treatment Imaging Results: CT/Abdomen/Pelvis without Cont IMPRESSION: Findings suggestive of acute right-sided pyelonephritis with right perinephric stranding. Mild degree of right hydronephrosis and engorgement of the right kidney. Retrocecal appendicitis is another diagnostic consideration. Operations: None Procedures: None Summary of Care Provided: Hospital course: The patient is a 38 year old F w/ pmhx of alcoholism, still occasionally drinking, and nicotine abuse who presented to the ER with c/o right flank pain, who appeared septic in the ER with positive UA, WBC count of 20K, tachycardic, and tachypneic. CT abdomen showed right sided pyelonephritis. She had uncontrolled right flank pain requiring multiple doses of morphine and so was admitted to the medical surgical unit with acute sepsis 2/2 pyelonephritis. She was treated with IV rocephin. Urine culture showed pansensitive E coli. She had gradual improvement in her right sided pain, nausea, and vomiting over the next two days, and was discharged home in stable condition on levaquin. She will need to follow up with her PCP in 1-2 weeks. This patient was seen by Ten Godoy PA-C under the supervision of Doctor Yee. [] - Physical Exam General: Alert, Oriented x3, Cooperative HEENT: Atraumatic, PERRLA, EOMI, Normocephalic Neck: Supple, No JVD, Negative Carotid Bruits Lungs: Clear to auscultation, Normal air movement Cardiovascular: Regular rate, No murmurs Abdomen: Bowel Sounds Present, Soft, Non Tender Extremities: No edema, Capillary Refill Less than 3 Seconds Skin: No rashes, No breakdown Musculoskeletal: No Tenderness to Palpation of Joints or Extremities Neurological: Cranial nerves II-XII grossly intact Psych/Mental Status: Normal Affect, Appropriate, Alert and oriented to time, place, person, mood and affect Vital Signs Temp Pulse Resp BP Pulse Ox 98.0 F 90 18 98/68 100 01/19/19 08:12 01/19/19 08:12 01/19/19 08:12 01/19/19 08:12 01/19/19 08:12 Oxygen Delivery Method Room Air Weight: 114 lb 0.016 oz Body Mass Index (BMI) 20.2 Intake and Output for Last 24 Hours 01/17/19 01/18/19 01/19/19 23:59 23:59 23:59 Intake Total 2145 / 2591 7896.0 / 7896.0 2372.5 / 2372.5 Output Total 2100 / 2100 350 / 350 Balance 2145 / 2391 5796.0 / 5796.0 2022.5 / 2021.5 Microbiology Past 72 Hours 01/17/19 11:56 Urine Culture - Final Urine, Clean Catch Escherichia coli Laboratory Tests Past 24 Hrs 01/19/19 01/19/19 01/19/19 06:34 06:34 06:34 WBC 7.9 RBC 3.34 L Hgb 10.2 L Hct 32.0 L MCV 95.8 MCH 30.5 MCHC 31.9 L RDW Std Deviation 42.9 RDW Coeff of Minesh 12.2 Plt Count 194 MPV 8.6 Immature Gran % (Auto) 0.900 Neut % (Auto) 74.5 H Lymph % (Auto) 15.5 L [place] % (Auto) 8.2 Eos % (Auto) 0.8 Baso % (Auto) 0.1 Absolute Neuts (auto) 5.9 Absolute Lymphs (auto) 1.22 Nucleated RBC % 0 Sodium 137 Potassium 3.6 Chloride 109 H Carbon Dioxide 26.0 Anion Gap 2 L BUN 4 L Creatinine 0.78 Estim Creat Clear Calc 80.61 Est GFR (MDRD) Af Amer 107 Est GFR (MDRD) Non-Af 89 BUN/Creatinine Ratio 5.1 L Glucose 158 H Calcium 7.6 L Phosphorus 1.4 L Magnesium 1.9 Discharge Diet: No Restrictions Discharge Activity: Return to Normal Activity Home Medications: Medications to take at Discharge Acetaminophen [Tylenol Tablet] 650 mg PO Q6H PRN PRN tab 01/19/19 Levofloxacin [Levaquin] 500 mg PO DAILY #5 tab 01/19/19 Na Biphos/Potassium Phosphate [Neutra-Phos Packet] 1 packet PO 4X/DAY #4 packet 01/19/19 Nicotine [Nicoderm Cq] 21 mg TRANSDERM. DAILY patch 01/19/19 hydrOXYzine pamoate capsule [Vistaril pamoate capsule] 25 mg PO TID PRN PRN #10 cap 01/19/19 Following Prescrptions Were Given to Patient: Levofloxacin [Levaquin] 500 mg PO DAILY #5 tab [facility] Na Biphos/Potassium Phosphate [Neutra-Phos Packet] 1 packet PO 4X/DAY #4 packet Transmission Status: [facility] hydrOXYzine pamoate capsule [Vistaril pamoate capsule] 25 mg PO TID PRN PRN #10 cap PRN Reason: ANXIETY Transmission Status: Received by LUCILLE LINDSAY RD Primary Care Physician: Jayden Oneal MD [Primary Care Provider] - Please follow up with your Primary Care Physician in: within 1-2 weeks Patient Instructions: Urinary Tract Infections in Women, Understanding Urinary Tract Infections (UTIs), Pyelonephritis Disposition: Home Minutes spent on discharge:: 35 Patient Condition:: Stable Medical Necessity - Tobacco Use Smoking Status: Current every day smoker Tobacco Use: Cigarettes Meaningful Use Info Meaningful Use Diagnoses (Choose all that apply): None applicable <Jennyfer Yee - Last Filed: 01/19/19 13:01> Discharge Date and Diagnosis - Secondary Discharge Diagnosis Chronic Problems Alcoholism (Chronic) Nicotine abuse (Chronic) Hospital Course and Treatment Summary of Care Provided: This patient was seen in conjunction with MARSHALL Maehr. I have independently interviewed and examined the patient and reviewed pertinent historical, laboratory, and other data. Please refer to MARSHALL Maher note for his patient's presentation, findings, and recommendations. I have reviewed and his note and concur with his documentation This is a 38-year-old female with past medical history of chronic alcohol use disorder and nicotine dependence who presented to the emergency department with right flank pain and was found to be septic with elevated white cell count of 20,000, tachycardic and tachypnea. CT of the abdomen and pelvis confirmed right-sided pyelonephritis. She was admitted to the regular nursing floor. She received IV fluids and IV ceftriaxone. Her urine cultures came back positive for E. coli which was pansensitive. During the course of admission, she had multiple issues with pain, nausea and vomiting as well as anxiety. She achieved different medications with improvement in her symptoms. She also received nicotine patch and gum during this admission. She also received treatment for hypokalemia and hypomagnesemia as well as hypophosphatemia patient improved, was no more febrile, did not have any nausea or vomiting on the day of discharge. She was discharged on p.o. Levaquin to complete 7 days of antibiotics. She was discharged with 4 doses of Neutra-Phos. On the day of discharge, patient appeared tearful; had had an argument with her significant other on the phone. She denied any dysuria or frequency. Her right-sided flank pain was much improved. Physical Exam: Gen: Comfortable, not pale, not jaundiced, well hydrated, CVS:HS I +II, regular, no murmurs RESP: CTA GI: BS present and normal, soft, tenderness in right flank region, no palpable organs EXT:No edema ASSESSMENT: 1. Sepsis secondary to acute pyelonephritis 2. Hypokalemia 3. Hypomagnesemia 4. Hypophosphatemia 5. Chronic alcoholism 6. Nicotine dependence 7. Anxiety disorder - Physical Exam Vital Signs Temp Pulse Resp BP Pulse Ox 98.0 F 90 18 98/68 100 01/19/19 08:12 01/19/19 08:12 01/19/19 08:12 01/19/19 08:12 01/19/19 08:12 Oxygen Delivery Method Room Air Weight: 51.71 kg Body Mass Index (BMI) 20.2 Intake and Output for Last 24 Hours 01/17/19 01/18/19 01/19/19 23:59 23:59 23:59 Intake Total 2145 / 2591 7896.0 / 7896.0 2372.5 / 2372.5 Output Total 2100 / 2100 350 / 350 Balance 2145 / 2391 5796.0 / 5796.0 2021.5 / 2021.5 Microbiology Past 72 Hours 01/17/19 11:56 Urine Culture - Final Urine, Clean Catch Escherichia coli Laboratory Tests Past 24 Hrs 01/19/19 01/19/19 01/19/19 06:34 06:34 06:34 WBC 7.9 RBC 3.34 L Hgb 10.2 L Hct 32.0 L MCV 95.8 MCH 30.5 MCHC 31.9 L RDW Std Deviation 42.9 RDW Coeff of Minesh 12.2 Plt Count 194 MPV 8.6 Immature Gran % (Auto) 0.900 Neut % (Auto) 74.5 H Lymph % (Auto) 15.5 L [place] % (Auto) 8.2 Eos % (Auto) 0.8 Baso % (Auto) 0.1 Absolute Neuts (auto) 5.9 Absolute Lymphs (auto) 1.22 Nucleated RBC % 0 Sodium 137 Potassium 3.6 Chloride 109 H Carbon Dioxide 26.0 Anion Gap 2 L BUN 4 L Creatinine 0.78 Estim Creat Clear Calc 80.61 Est GFR (MDRD) Af Amer 107 Est GFR (MDRD) Non-Af 89 BUN/Creatinine Ratio 5.1 L Glucose 158 H Calcium 7.6 L Phosphorus 1.4 L Magnesium 1.9 Code Visit Inpatient E&M: 62866 Disch Hosp
== END 2019-01-19 10:20 | disposition home or self-care (01) | DRG 872 ==
LOC: ED 12:08 → MS3 01-18 07:04
PROVIDERS: Physician Assistant; Admitting Provider Internal Medicine; Emergency Provider Emergency Medicine; Family Provider Family Medicine; PCP Family Medicine; Referring Provider Internal Medicine; Visit Provider Internal Medicine
DX: A41.9 Sepsis, unspecified organism (principal); N10 Acute pyelonephritis; B96.20 Unspecified Escherichia coli [E. coli] as the cause of diseases classified elsewhere; F10.20 Alcohol dependence, uncomplicated; F41.9 Anxiety disorder, unspecified; Z87.442 Personal history of urinary calculi; F17.210 Nicotine dependence, cigarettes, uncomplicated; E87.6 Hypokalemia; E83.42 Hypomagnesemia; E83.39 Other disorders of phosphorus metabolism
CPT/HCPCS: 36415; 74176; 80048; 80076; 81001; 83605; 83735; 84100; 84703; 85025; 87077; 87086; 87088; 87186; 99284; 99406; J7030; A4216; J0696; J2405